=== PATIENT | male | born 1990 | race Caucasian/White ===

== ENCOUNTER 2018-03-08 02:27 | Emergency (ER) | payer OTHER ==
[~2018-03-08] VITALS: Ht 175.3 cm; Wt 77.1 kg
[2018-03-08 02:32] VITALS: BP 122/72
--- NOTE | 2018-03-08 02:32 | NUR ---
TO BED # 12 AMBULATORY, REPORT GIVEN TO YESSICA GRADY
--- NOTE | 2018-03-08 02:46 | NUR ---
PATIENT PRESENTS TO ED WITH C/O ANIXETY ATTACK WITH SOB X 30MINS-1HR AGO. DENIES N/V/D OR PAIN AT THIS TIME. PT BREATHING IS NON-LABORED AND CURRENTLY SATURATING AT 100% ON ROOM AIR. SKIN IS PINK/WARM/DRY; AAOX4 WITH EVEN AND STEADY GAIT; HR EVEN AND REGULAR; VSS; PATIENT POSITIONED FOR COMFORT; HOB ELEVATED; BEDRAILS UP X2; BED DOWN. ER MD MADE AWARE OF PT STATUS.
[2018-03-08 03:17] VITALS: BP 150/97
== END 2018-03-08 03:14 | disposition home or self-care (01) ==
LOC: MED 02:27
DX: F41.0 Panic disorder [episodic paroxysmal anxiety] (principal); E11.9 Type 2 diabetes mellitus without complications
CPT/HCPCS: 99283

== ENCOUNTER 2018-08-06 11:40 | Emergency (ER) | payer OTHER ==
[~2018-08-06] VITALS: Ht 177.8 cm; Wt 80.3 kg
[2018-08-06 11:52] VITALS: BP 149/93
--- NOTE | 2018-08-06 11:58 | NUR ---
28 Y M PT C/O GENERAL ABD PAIN 12/16 X 3 DAYS ADMITS N/V. DENIES FEVERS/CHILLS/CP/SOB. LBM TODAY. PATIENT STATES HE THREW UP YESTERDAY, FEELS BLOATED WHEN EATS FEELS LIKE THERE IS A ROPE TIGHTENING AORUND HIS WAIST BED IS DOWN, LOCKED, PATIENT IN GOWN, BED RAIL X 1, ERMD NOTIFIED OF PATIENT STATUS HX---ANXIETY, DM MEDS---METFORMIN
--- NOTE | 2018-08-06 12:09 | NUR ---
PT TO ER BED 12
--- NOTE | 2018-08-06 12:15 | NUR ---
PATIENT BEING TAKEN TO CT
[2018-08-06 12:42] LABS: APPEARANCE,URINE HAZY (CLEAR); BILIRUBIN,URINE NEGATIVE (NEGATIVE); BLOOD, URINE 2+ (NEGATIVE); COLOR,URINE YELLOW (YELLOW); LEUKOCYTE ESTERASE ,URINE NEGATIVE (NEGATIVE); NITRITE, URINE NEGATIVE (NEGATIVE); UGLUCOSE 2+ (NEGATIVE)
[2018-08-06 12:44] LABS: BASOPHILS % (AUTO) 0.5 % (0.0-2.0); EOSINOPHILS # (AUTO) 0.1 K/uL (0-0.4); EOSINOPHILS % (AUTO) 1.5 % (0.0-4.0); HEMATOCRIT 48.5 % (36-52); HEMOGLOBIN 16.6 g/dL (12.0-18.0); LYMPHOCYTES # (AUTO) 1.8 K/uL (2.0-11.5); LYMPHOCYTES % (AUTO) 32.9 % (20.5-51.1); MEAN CORPUSCULAR HEMOGLOBIN 31 pg (27-31); MEAN CORPUSCULAR HGB CONC 34 g/dL (33-37); MEAN CORPUSCULAR VOLUME 89.7 fL (80-94); MONOCYTES # (AUTO) 0.5 K/uL (0.8-1.0); MONOCYTES % (AUTO) 9.5 % (1.7-9.3); NEUTROPHILS % (AUTO) 55.6 % (42.2-75.2); PLATELET COUNT (AUTO) 147 K/uL (140-450); RED CELL DISTRIBUTION WIDTH 12.9 % (11.6-13.7); WHITE BLOOD COUNT (AUTO) 5.4 K/uL (4.8-10.8)
[2018-08-06 12:52] LABS: ANION GAP 15.2 (8-16); CARBON DIOXIDE 27.5 mmol/L (21-32); CREATININE 0.8 mg/dL (0.7-1.3); POTASSIUM 3.7 mmol/L (3.5-5.1)
[2018-08-06 12:57] LABS: RBC,URINE 11-20 (MOD) /HPF (0-5); WBC,URINE 0-5 (RARE) /HPF (0-5)
[2018-08-06 12:58] LABS: ALBUMIN 4.6 g/dL (3.4-5.0); TOTAL BILIRUBIN 1.2 mg/dL (0.0-1.0)
--- NOTE | 2018-08-06 14:47 | NUR ---
dr madrid at bedside
[2018-08-06] MEDS ORDERED: NACL 0.9% 2,000 ML IV ONE (15:05)
[2018-08-06 15:12] VITALS: BP 135/86
--- NOTE | 2018-08-06 15:14 | NUR ---
Patient discharged with v/s stable. Written and verbal after care instructions given and explained. Patient alert, oriented and verbalized understanding of instructions. Ambulatory with steady gait. All questions addressed prior to discharge. ID band removed. Patient advised to follow up with PMD. Rx of PREDNISONE, PRILOSEC, MOTRIN given. Patient educated on indication of medication including possible reaction and side effects. Opportunity to ask questions provided and answered.
== END 2018-08-06 15:14 | disposition home or self-care (01) ==
LOC: MED 11:40
DX: R10.13 Epigastric pain (principal); R06.02 Shortness of breath; R07.9 Chest pain, unspecified; E11.9 Type 2 diabetes mellitus without complications; F17.200 Nicotine dependence, unspecified, uncomplicated
CPT/HCPCS: 36415; 80053; 81001; 83690; 85025; 99284

== ENCOUNTER 2019-02-04 20:16 | Emergency (ER) | payer OTHER ==
[~2019-02-04] VITALS: Ht 177.8 cm; Wt 70.3 kg
[2019-02-04 20:35] VITALS: BP 146/116
--- NOTE | 2019-02-04 20:38 | NUR ---
PT TO LOBBY EVEN STEADY GAIT.
--- NOTE | 2019-02-04 22:10 | NUR ---
TO BED # 07 AMBULATORY
--- NOTE | 2019-02-04 22:18 | NUR ---
28/ M PRESENTED TO ED BIB SELF. A/OX [address] TIME AND EVENT. C/O LEFT EAR RINGING CONSTANT SINCE YESTERDAY. NO HEADACHE, DIZZINESS. EYES PERRLA 3MM. STATES NO CHANGES IN VISION. NO N/V/D. NO FEVER. MED HX DM. NO RX. DENIES ALLERGIES. WILL CONTINUE TO MONITOR.
--- NOTE | 2019-02-04 22:30 | NUR ---
CURRENT BLOOD SUGAR 326. MADE MD AWARE
--- NOTE | 2019-02-05 00:17 | NUR ---
RECEIVED REPORT FROM YSABEL PICKENS. PT IN BED RESTING, IN STABLE CONDITION AT THIS TIME.
[2019-02-05] MEDS ORDERED: KETOROLAC 60 MG/2 ML VIAL IM ONE (00:50)
[2019-02-05 01:18] VITALS: BP 146/116
== END 2019-02-05 01:18 | disposition home or self-care (01) ==
LOC: MED 20:16
DX: H93.12 Tinnitus, left ear (principal); E11.9 Type 2 diabetes mellitus without complications; F17.200 Nicotine dependence, unspecified, uncomplicated
CPT/HCPCS: 82948; 96372; 99283; J1885